=== PATIENT | male | born 1965 | race Caucasian/White ===

== ENCOUNTER 2023-04-12 09:01 | Day surgery (SDC) | payer BC, MEDICARE ==
--- NOTE | 2023-04-12 10:51 | US ---
EXAMINATION TYPE: US biopsy lymph node DATE OF EXAM: 04/12/2023 10:41 AM CLINICAL INDICATION:Male, 58 years old with history of R59.0 LOCALIZED ENLARGED LYMPH NODES; , thyroi d nodule. COMPARISON: None ATTENDING: Dr. Haim Layton PROCEDURE: Informed consent was obtained. The risks and benefits of the procedure were discussed with the patien t. The site was marked. Timeout procedure was performed Ultrasound imaging of the left axilla demonstrates enlarged lymph nodes. The patient was prepped, draped in the usual sterile fashion, and locally anesthetized with 1% lidoca ine. There was a total of 3 18-gauge core biopsies obtained. Samples were sent to the pathology depar tment for further analysis. Patient tolerated the procedure without incident and was sent home in st able condition. IMPRESSION: Successful ultrasound guided left axillary lymph node biopsy with 3 samples..
[2023-04-12 15:07] VITALS: BP 134/80; PULSE 68; RESP 18; TEMP 98.4
== END 2023-04-12 10:50 | disposition home or self-care (01) ==
LOC: RADPROMAIN 09:01
PROVIDERS: ATTEND Surgery
DX: C43.62 Malignant melanoma of left upper limb, including shoulder (principal)
CPT/HCPCS: 38505; 76942; 88305; 88341; 88342

== ENCOUNTER → 2023-05-08 | Outpatient (CLI) | payer MEDICARE ==
--- NOTE | 2023-05-11 16:38 | MR ---
EXAMINATION TYPE: MR brain wo/w con DATE OF EXAM: 05/08/2023 5:58 PM CLINICAL INDICATION:Male, 58 years old with history of C43.9 MALIGNANT MELANOMA OF SKIN, UNSPECIFIED; Malignant neoplasm of skin on left shoulder. Melanoma. COMPARISON: None TECHNIQUE: Multi planar, multi sequence imaging was performed through the brain including: T1, T2, In version recovery, susceptibility weighted imaging and gradient echo imaging and Diffusion weighted im aging. The patient was then given intravenous contrast and multi planar, T1 fat-saturation images wer e obtained. IV Contrast: 7.5 cc Gadavist FINDINGS: No abnormal T1 bright spots identified within the intra-axial structures. Normal posterior pituitary T1 bright spot noted. The acuña-white junctions, ventricular system, basal cisterns appear u nremarkable. Diffusion-weighted imaging shows no evidence of restricted diffusion to suggest acute/s ubacute infarct. Intracranial arterial flow voids are maintained. Midline structures show no abnormal ity. Minimal foci of high T2 signal intensity are seen within the periventricular white matter. The s usceptibility weighted images do not reveal any evidence for micro-hemorrhage. After administration o f gadolinium, no abnormal enhancement is seen. The bone marrow signal is within normal limits. Paranasal sinuses and mastoid air cells: No significant paranasal sinus disease. Visualized orbits: Orbital contents are intact. IMPRESSION: 1. No abnormal bright T1 lesions to suggest melanoma. No evidence of intracranial mass, acute/subacut e infarct, or abnormal enhancement. 2. Minimal Nonspecific white matter changes, likely related to small vessel ischemic disease.
== END | disposition home or self-care (01) ==
LOC: RADMRIMAIN 17:10
PROVIDERS: ATTEND Internal Medicine
DX: R90.82 White matter disease, unspecified (principal); Z85.828 Personal history of other malignant neoplasm of skin
CPT/HCPCS: 70553; A9585